=== PATIENT | male | born 1985 | race Caucasian/White ===

== ENCOUNTER 2024-03-20 14:11 | Emergency (ER) | payer OTHER ==
[~2024-03-20] VITALS: Ht 172.7 cm; Wt 95.8 kg
[2024-03-20] MEDS: KETOROLAC 60MG 2ML VIAL IM ONE (16:36)
[2024-03-20] MEDS ORDERED: ISOVUE-370 76% 100ML VIAL As Ordered ONE (17:34)
[2024-03-20 18:04] LABS: Trichomonas vaginalis (AMP) NOT DETECTED (NEGATIVE)
[2024-03-20 18:27] LABS: GC DNA AMPLIFICATION NEGATIVE (NEGATIVE)
[2024-03-20 18:58] LABS: BASO # 0.1 10^3/uL (0.0-0.2); BASO % 0.6 % (0.0-1.0); EOS # 0.1 10^3/uL (0.0-0.5); EOS % 0.4 % (0.0-3.0); HEMATOCRIT 49.4 % (42.0-52.0); HEMOGLOBIN 16.7 g/dl (13.5-17.5); LYMPH # 1.3 10^3/uL (1.5-5.0); LYMPH % 10.3 % (24.0-44.0); MEAN CORPUSCULAR HGB CONC 33.8 g/dl (32.0-36.5); MEAN CORPUSCULAR VOLUME 91.7 fl (80.0-96.0); MONO # 0.9 10^3/uL (0.0-0.8); MONO % 6.8 % (2.0-8.0); NEUTROPHILS # 10.5 10^3/uL (1.5-8.5); NEUTROPHILS % 81.4 % (36.0-66.0); PLATELET COUNT, AUTOMATED 275 10^3/uL (150-450); RED BLOOD COUNT 5.39 10^6/uL (4.30-6.10); WHITE BLOOD COUNT 12.9 10^3/uL (4.0-10.0)
[2024-03-20] MEDS ORDERED: METR-265 PO (19:44)
[2024-03-20] MEDS ORDERED: IBUP-1022 PO (19:44)
[2024-03-20] MEDS ORDERED: CIPR-249 PO (19:44)
[2024-03-20] MEDS: CIPROFLOXACIN 500MG TABLET PO ONE (19:51)
[2024-03-20] MEDS: metroNIDAZOLE (FLAGYL) 500MG TABLET PO ONE (19:51)
[2024-03-20 19:57] VITALS: BP 163/98; TEMP 99.4; O2SAT 97
== END 2024-03-20 19:58 | disposition home or self-care (01) ==
LOC: M ED 14:11
DX: K57.32 Diverticulitis of large intestine without perforation or abscess without bleeding (principal); N45.2 Orchitis; I10 Essential (primary) hypertension; F17.200 Nicotine dependence, unspecified, uncomplicated
CPT/HCPCS: 74177; 76870; 80047; 81001; 85025; 87661; 87810; 87850; 96372; 99284; J1885; Q9967